=== PATIENT | female | born 1930 | race Caucasian/White ===

== ENCOUNTER 2017-01-16 12:02 | Emergency (ER) | payer MEDICARE, MEDICAID ==
[~2017-01-16] VITALS: Ht 154.9 cm; Wt 62.6 kg
[~2017-01-16 12:02] MED LIST: ASP81CT PO; ATEN-158 PO; CLOP75TA PO; MULT-963 PO; SIMV20TA PO; VIT1TABL93 PO
[2017-01-16 12:25] LABS: BASOPHILS % (AUTO) 0 % (0-10); EOSINOPHILS # (AUTO) 0.2 10^3/uL (0.0-0.3); EOSINOPHILS % (AUTO) 2 % (0-10); LYMPHOCYTES # (AUTO) 2.8 X 10^3 (1.0-4.0); LYMPHOCYTES % (AUTO) 37 % (12-44); MEAN CORPUSCULAR HEMOGLOBIN 31 PG (25-34); MEAN CORPUSCULAR HGB CONC 33 G/DL (32-36); MEAN CORPUSCULAR VOLUME 94 FL (80-99); MEAN PLATELET VOLUME 9.5 FL (7.4-10.4); MONOCYTES # (AUTO) 0.7 X 10^3 (0.0-1.0); MONOCYTES % (AUTO) 10 % (0-12); NEUTROPHILS # (AUTO) 3.8 X 10^3 (1.8-7.8); NEUTROPHILS % (AUTO) 51 % (42-75); PLATELET COUNT 156 10^3/uL (130-400); RED BLOOD COUNT 4.71 10^6/uL (4.35-5.85); RED CELL DISTRIBUTION WIDTH 13.1 % (10.0-14.5); WHITE BLOOD COUNT 7.4 10^3/uL (4.3-11.0)
--- NOTE | 2017-01-16 12:27 | ED EENT ---
History of Present Illness General Chief Complaint: Eye Problems Stated Complaint: BLURRED VISION Nursing Triage Note: PT CO BILAT EYE BLURRED VISION WHILE SHE WAS READING A MAGAZINE. SHE ALSO C/O POUNDING IN HER EARS, AND STATES HER BP HAS BEEN HIGH. Source: patient Exam Limitations: no limitations History of Present Illness Time seen by provider: 12:24 Initial Comments To ER with reports of blurred vision. She arrives per EMS from home where she lives alone. Blurred vision occurred this morning while she was sitting in her chair reading a magazine. This came on suddenly and was not associated with eye redness itching or pain. She called ambulance and while she was on the phone with 911 and the blurred vision which affected both eyes resolved. In total, the blurred vision persisted for about 5-10 minutes before resolving on its own. She states that during the time that her vision was blurred she had a "whooshing" sensation in her head. She denies any difficulty with word finding , speech or unilateral weakness. She states her vision remains back to normal at this time. She also states that she's been having lower abdominal cramping for about the past week and high blood pressure which is unusual for her. Timing/Duration: this morning Severity: moderate Associated Symptoms: denies symptoms Allergies and Home Medications Allergies Uncoded Allergies: SULFA (Allergy, Unknown, 12/31/14) Home Medications Aspirin 81 Mg Chew, 81 MG PO, (Reported) Atenolol 50 Mg Tab, 50 MG PO, (Reported) Clopidogrel Bisulfate 75 Mg Tablet, 1 EACH PO DAILY, (Reported) Multivitamin 1 Each Tablet, 1 EACH PO DAILY, (Reported) Simvastatin 20 Mg Tablet, 20 MG PO DAILY, (Reported) Vit D3/Folic Acid/B2/B6/B12 1 Each Tablet, 1 EACH PO DAILY, (Reported) Review of Systems Constitutional: see HPI Eyes: See HPI, Blurred Vision Ears: No Symptoms Reported Nose: no symptoms reported Mouth: no symptoms reported Throat: no symptoms reported Respiratory: no symptoms reported Cardiovascular: no symptoms reported Musculoskeletal: no symptoms reported Skin: no symptoms reported Neurological: No Symptoms Reported Hematologic/Lymphatic: No Symptoms Reported Past Wnjlwkz-Dcfikc-Xvopim Hx Patient Social History Alcohol Use: Denies Use Recreational Drug Use: No Smoking Status: Never a Smoker 2nd Hand Smoke Exposure: No Recent Foreign Travel: No Contact w/Someone Who Travel: No Recent Infectious Disease Expo: No Immunizations Up To Date Tetanus Booster (TDap): Less than 5yrs Seasonal Allergies Seasonal Allergies: No Surgeries HX Surgeries: Yes (L SIDED CAROTID) Respiratory Hx Respiratory Disorders: No Cardiovascular Hx Cardiac Disorders: Yes Cardiac Disorders: High Cholesterol, Hypertension Neurological Hx Neurological Disorders: No Reproductive System Hx Reproductive Disorders: No Sexually Transmitted Disease: No Genitourinary Hx Genitourinary Disorders: No Gastrointestinal Hx Gastrointestinal Disorders: No Musculoskeletal Hx Musculoskeletal Disorders: No Endocrine Hx Endocrine Disorders: No HEENT HX ENT Disorders: No Cancer Hx Cancer: No Psychosocial Hx Psychiatric Problems: No Integumentary HX Skin/Integumentary Disorder: No Blood Transfusions Hx Blood Disorders: No Adverse Reaction to a Blood Tr: No Family Medical History Significant Family History: No Pertinent Family Hx Physical Exam Vital Signs Vital Sign - Last 12Hours 01/16/17 12:16 Temp 98.7 Pulse 69 Resp 20 B/P (MAP) 178/105 Pulse Ox 97 O2 Delivery Room Air General Appearance: WD/WN, no apparent distress Eyes: bilateral eye normal inspection, bilateral eye PERRL, bilateral eye EOMI Ears: bilateral ear auricle normal, bilateral ear canal normal, bilateral ear TM normal Mouth/Throat: normal mouth inspection, pharynx normal Neck: non-tender, full range of motion Respiratory: normal breath sounds, no respiratory distress, no accessory muscle use Gastrointestinal: normal bowel sounds, non tender, soft Neurologic/Psychiatric: alert, normal mood/affect, oriented x 3 Skin: normal color, warm/dry Her NIH stroke scale on presentation to ER is 0. Progress/Results/Core Measures Results/Orders Lab Results Laboratory Tests Test 01/16/17 12:09 01/16/17 14:24 Range/Units White Blood Count 7.4 4.3-11.0 10^3/uL Red Blood Count 4.71 4.35-5.85 10^6/uL Hemoglobin 14.5 11.5-16.0 G/DL Hematocrit 44 35-52 % Mean Corpuscular Volume 94 80-99 FL Mean Corpuscular Hemoglobin 31 25-34 PG Mean Corpuscular Hemoglobin Concent 33 32-36 G/DL Red Cell Distribution Width 13.1 10.0-14.5 % Platelet Count 156 130-400 10^3/uL Mean Platelet Volume 9.5 7.4-10.4 FL Neutrophils (%) (Auto) 51 42-75 % Lymphocytes (%) (Auto) 37 12-44 % Monocytes (%) (Auto) 10 0-12 % Eosinophils (%) (Auto) 2 0-10 % Basophils (%) (Auto) 0 0-10 % Neutrophils # (Auto) 3.8 1.8-7.8 X 10^3 Lymphocytes # (Auto) 2.8 1.0-4.0 X 10^3 Monocytes # (Auto) 0.7 0.0-1.0 X 10^3 Eosinophils # (Auto) 0.2 0.0-0.3 10^3/uL Basophils # (Auto) 0.0 0.0-0.1 10^3/uL Sodium Level 140 135-145 MMOL/L Potassium Level 4.2 3.6-5.0 MMOL/L Chloride Level 106 98-107 MMOL/L Carbon Dioxide Level 26 21-32 MMOL/L Anion Gap 8 5-14 MMOL/L Blood Urea Nitrogen 14 7-18 MG/DL Creatinine 0.61 0.60-1.30 MG/DL Estimat Glomerular Filtration Rate > 60 BUN/Creatinine Ratio 23 Glucose Level 93 70-105 MG/DL Calcium Level 9.8 8.5-10.1 MG/DL Total Bilirubin 0.7 0.1-1.0 MG/DL Aspartate Amino Transf (AST/SGOT) 19 5-34 U/L Alanine Aminotransferase (ALT/SGPT) 14 0-55 U/L Alkaline Phosphatase 53 40-136 U/L Total Protein 6.5 6.4-8.2 GM/DL Albumin 3.8 3.2-4.5 GM/DL Urine Color YELLOW Urine Clarity CLEAR Urine pH 7 5-9 Urine Specific [place] 1.010 L 1.016-1.022 Urine Protein NEGATIVE NEGATIVE Urine Glucose (UA) NEGATIVE NEGATIVE Urine Ketones NEGATIVE NEGATIVE Urine Nitrite NEGATIVE NEGATIVE Urine Bilirubin NEGATIVE NEGATIVE Urine Urobilinogen NORMAL NORMAL MG/DL Urine Leukocyte Esterase 1+ H NEGATIVE Urine RBC (Auto) NEGATIVE NEGATIVE Urine RBC NONE /HPF Urine WBC RARE /HPF Urine Squamous Epithelial Cells RARE /HPF Urine Crystals NONE /LPF Urine Bacteria NEGATIVE /HPF Urine Casts NONE /LPF Urine Mucus NEGATIVE /LPF Urine Culture Indicated NO My Orders Orders - ERICK RODRIGUEZ RIDE ATTENDANT Cbc With Automated Diff (01/16/17 12:17) Comprehensive Metabolic Panel (01/16/17 12:17) Ua Culture If Indicated (01/16/17 12:17) Ct Head Wo (01/16/17 12:17) Chest 1 View, Ap/Pa Only (01/16/17 12:17) Saline Lock/Iv-Start (01/16/17 12:17) Ct Abdomen/Pelvis W (01/16/17 12:48) Iohexol Injection (Omnipaque 350 Mg/Ml 1 (01/16/17 13:00) Sodium Chloride Flush (Catheter Flush Sy (01/16/17 13:00) Ns (Ivpb) (Sodium Chloride 0.9% Ivpb Bag (01/16/17 13:00) Medications Given in ED Current Medications Medications Dose Ordered Sig/Hilda Route Start Time Stop Time Status Last Admin Dose Admin Iohexol 100 ml ONCE ONCE IV 01/16/17 13:00 01/16/17 13:27 DC 01/16/17 13:09 100 ML Sodium Chloride 10 ml NEEDED PRN IV 01/16/17 13:00 01/16/17 13:10 10 ML Sodium Chloride 100 ml ONCE ONCE IV 01/16/17 13:00 01/16/17 13:27 DC 01/16/17 13:10 80 ML Vital Signs/I&O Vital Sign - Last 12Hours 01/16/17 12:16 Temp 98.7 Pulse 69 Resp 20 B/P (MAP) 178/105 Pulse Ox 97 O2 Delivery Room Air Blood Pressure Mean: 129 Departure Communication Progress Notes Blood pressure on arrival here was 178/107. Heart rate 69. At this time, 1500 , she is down to 140/67 with no treatment. Impression Impression: Primary Impression: Constipation Additional Impressions: transient blurred vision Labile hypertension Disposition: 01 HOME, SELF-CARE Condition: Stable Departure-Patient Inst. Decision time for Depature: 14:57 Referrals: CHIQUITA HINTON DO (PCP/Family) Primary Care Physician Patient Instructions: Malignant Hypertension Add. Discharge Instructions: 1. Follow-up with Dr. Hinton 2. Return to ER for any concerns 3. All discharge instructions reviewed with patient and/or family. Voiced understanding. ERICK RODRIGUEZ RIDE ATTENDANT Jan 16, 2017 12:27
[2017-01-16 12:37] LABS: ALANINE AMINOTRANSFERASE 14 U/L (0-55); ALBUMIN 3.8 GM/DL (3.2-4.5); ANION GAP 8 MMOL/L (5-14); ASPARTATE AMINO TRANSFERASE 19 U/L (5-34); BILIRUBIN,TOTAL 0.7 MG/DL (0.1-1.0); BLOOD UREA NITROGEN 14 MG/DL (7-18); BUN/CREATININE RATIO 23; CALCIUM 9.8 MG/DL (8.5-10.1); CARBON DIOXIDE 26 MMOL/L (21-32); CHLORIDE 106 MMOL/L (98-107); CREATININE SERUM 0.61 MG/DL (0.60-1.30); GFR ESTIMATED > 60; GLUCOSE 93 MG/DL (70-105); POTASSIUM 4.2 MMOL/L (3.6-5.0); SODIUM 140 MMOL/L (135-145); TOTAL PROTEIN 6.5 GM/DL (6.4-8.2)
--- NOTE | 2017-01-16 12:54 | Diagnostic Imaging Report ---
INDICATION: Hypertension with visual disturbance. Portable upright view of the chest is obtained with comparison made to study of 12/06/2014. There is mild generalized cardiomegaly. Pulmonary vascularity is at the upper limits of normal. There is blunting of the left costophrenic sulcus. No consolidation is identified. Air bronchograms are not appreciated. IMPRESSION: Mild cardiomegaly with pulmonary vascularity at the upper limits of normal. This could be related to cardiac decompensation without overt edema. There may be mild left pleural fluid versus pleural thickening. Dictated by: Dictated on workstation # [id number]
[2017-01-16] MEDS ORDERED: NS 100 ML (IVPB) BAG IV ONE (13:00)
[2017-01-16] MEDS ORDERED: IOHEXOL 350 MG/ML 100 ML (OMNIPAQUE 350) VIAL IV ONE (13:00)
[2017-01-16] MEDS ORDERED: CATHETER FLUSH 10 ML SYR IV PRN (13:00)
--- NOTE | 2017-01-16 13:09 | Diagnostic Imaging Report ---
CLINICAL INDICATION: Patient with high blood pressure, vision went blank for few seconds. EXAM: Axial CT scan of brain performed without IV contrast. COMPARISON: None. FINDINGS: There is no evidence of acute cerebral infarct, intracranial hemorrhage, or gross mass effect. There is a small area of chronic cerebral infarct involving the anterior right external capsule region. There is focal areas of low-attenuation white matter changes, likely related to chronic small vessel ischemic disease. There is prominent perivascular space versus chronic cerebral infarct involving the left basal ganglia/external capsule region. Otherwise, there is normal monge-white matter distinction. The brain parenchymal volume appears appropriate for patient's age. There is no significant midline shift or herniation. There is no evidence of hydrocephalus. The basal cisterns are unremarkable. The skull, extracranial soft tissue, and orbits are unremarkable. The paranasal sinuses are unremarkable. IMPRESSION: 1: There is no CT evidence of acute cerebral infarct, intracranial hemorrhage, hydrocephalus, or brain herniation. 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 3: There is a small area of prominent perivascular space versus chronic cerebral infarct involving the left basal ganglia/external capsule region. 4: Brain parenchymal chronic small vessel ischemic disease. Dictated by: Dictated on workstation # [id number]
[2017-01-16 14:30] LABS: BILIRUBIN,URINE NEGATIVE (NEGATIVE); KETONES,URINE NEGATIVE (NEGATIVE); LEUKOCYTE ESTERASE ,URINE 1+ (NEGATIVE); NITRITE,URINE NEGATIVE (NEGATIVE); PH,URINE 7 (5-9); PROTEIN,URINE NEGATIVE (NEGATIVE); UROBILINOGEN,URINE NORMAL (NORMAL)
--- NOTE | 2017-01-16 14:36 | Diagnostic Imaging Report ---
PROCEDURE: CT abdomen and pelvis with contrast. TECHNIQUE: Multiple contiguous axial images were obtained through the abdomen and pelvis after administration of intravenous contrast. INDICATION: Abdominal pain. The previous CT abdomen/pelvis exam of 02/07/2007, failed to show any sign of an acute abnormality On this study the liver is homogeneous and not enlarged. The spleen, pancreas, adrenals, kidneys, aorta, and inferior vena cava show no sign of an acute abnormality. There is a small cyst in the lateral aspect of the superior pole of the right kidney. This seems unchanged when compared to the prior study. As noted on the prior exam the gallbladder is surgically absent. The stomach is not well distended and consequently difficult to assess. There is a 2.1 x 3.7-cm hiatal hernia on this exam. This is slightly larger than on the prior study. The appendix was visualized and is not abnormally thickened. There are numerous diverticula involving the sigmoid and descending colon, but there is no evidence for acute diverticulitis. The urinary bladder is grossly unremarkable. The uterus is surgically absent. There is no pelvic mass or free fluid collection noted. The bone windows show no sign of a fracture or of a destructive lesion. The lung bases are clear. IMPRESSION: 1. There is no acute abnormality of the abdomen or pelvis. 2. The gallbladder and uterus are surgically absent. 3. There are numerous diverticula involving the sigmoid colon, but there is no evidence for acute diverticulitis. 4. The hiatal hernia noted previously is slightly larger. 5. These results were discussed with Larry Ramirez APRN, in the ER. Dictated by: Dictated on workstation # [id number]
[2017-01-16 14:41] LABS: SQUAMOUS EPITHELIAL CELL,UR RARE /HPF; WBC,URINE RARE /HPF
[2017-01-16 15:20] VITALS: BP 163/77
== END 2017-01-16 15:20 | disposition home or self-care (01) ==
LOC: EDUNIT# 12:02 → ER 12:05
DX: H53.8 Other visual disturbances (principal); K59.00 Constipation, unspecified; I10 Essential (primary) hypertension; E78.00 Pure hypercholesterolemia, unspecified; Z79.82 Long term (current) use of aspirin
CPT/HCPCS: 36415; 70450; 71010; 74177; 80053; 81000; 85025

== ENCOUNTER 2017-02-27 14:00 | Outpatient (RCR) | payer MEDICARE, MEDICAID | END 2017-03-02 | disposition home or self-care (01) | PROVIDERS: ATTEND Family Medicine | DX: M54.41 Lumbago with sciatica, right side (principal); R53.1 Weakness ==

== ENCOUNTER 2017-04-10 13:53 | Outpatient (RCR) | payer MEDICARE, MEDICAID | END 2017-04-10 14:33 | disposition home or self-care (01) | PROVIDERS: ATTEND Family Medicine | DX: M54.41 Lumbago with sciatica, right side (principal); R53.1 Weakness ==

== ENCOUNTER → 2017-09-12 | Outpatient (CLI) | payer MEDICARE, MEDICAID ==
--- NOTE | 2017-09-12 18:06 | Diagnostic Imaging Report ---
INDICATION: Routine screening. Comparison is made with prior exam from 02/23/2016 and 07/14/2014. The current study was also evaluated with a Computer Aided Detection (CAD) system. FINDINGS: Both breasts do show moderate parenchymal heterogeneity and increased density, limiting the sensitivity of mammography. Benign-appearing parenchymal and vascular calcifications are noted bilaterally. No mass or malignant-appearing microcalcifications are seen. The axillae are unremarkable. IMPRESSION: No mammographic features suspicious for malignancy are identified. ACR BI-RADS Category 2: Benign findings. Result letter will be mailed to the patient. Note: At least 10% of breast cancer is not imaged by mammography. Dictated by: Dictated on workstation # [id number]
== END ==
LOC: RAD 14:26
PROVIDERS: ATTEND Family Medicine
DX: Z12.31 Encounter for screening mammogram for malignant neoplasm of breast (principal)
CPT/HCPCS: 77067

== ENCOUNTER 2017-11-08 05:30 | Outpatient (CLI) | payer MEDICARE, MEDICAID ==
[~2017-11-08] VITALS: Ht 154.9 cm; Wt 62.6 kg
[~2017-11-08 05:30] MED LIST changes: +ASPI-999 PO; +ATEN50TA PO; +MULT-324 PO; +SIMV20TA3 PO
== END 2017-11-08 13:12 ==
LOC: PREOP 05:30
PROVIDERS: ATTEND Surgery
DX: Z01.818 Encounter for other preprocedural examination (principal); Z12.11 Encounter for screening for malignant neoplasm of colon; Z86.010 Personal history of colon polyps

== ENCOUNTER 2017-11-12 08:13 | Day surgery (SDC) | payer MEDICARE, MEDICAID ==
[~2017-11-12] VITALS: Ht 154.9 cm; Wt 62.6 kg
[2017-11-12] MEDS ORDERED: LACTATED RINGERS 1,000 ML IV ONE (08:27)
[2017-11-12 08:30] VITALS: BP 140/63
[2017-11-12] MEDS ORDERED: NS IV 1000 ML 1,000 ML IV SCH (09:00)
--- NOTE | 2017-11-12 09:01 | Progress Note-Pre Operative ---
Pre-Operative Progress Note H&P Reviewed The H&P was reviewed, patient examined and no changes noted. Date Seen by Provider: Nov 12, 2017 Time Seen by Provider: 09:00 Date H&P Reviewed: Nov 12, 2017 Time H&P Reviewed: 09:00 Pre-Operative Diagnosis: history of polyps ROSA BARRON DO Nov 12, 2017 09:01
[2017-11-12] MEDS ORDERED: LACTATED RINGERS 1,000 ML IV SCH (09:15)
[2017-11-12] MEDS ORDERED: MIDAZOLAM 2 MG/2 ML (VERSED) VIAL ONE (09:21)
[2017-11-12] MEDS ORDERED: PROPOFOL INJECTION 50 ML IV ONE (09:21)
--- NOTE | 2017-11-12 10:30 | Progress Note-Post Operative ---
Post-Operative Progess Note Surgeon (s)/Railroad Brake Repairer (s) Surgeon ROSA BARRON DO Railroad Brake Repairer: na Pre-Operative Diagnosis history of polyps Post-Operative Diagnosis diverticulosis Procedure & Operative Findings Date of Procedure 11/12/17 Procedure Performed/Findings colonoscopy Anesthesia Type per [facility] Estimated Blood Loss Estimated blood loss (mL): none Specimens/Packing Specimens Removed none ROSA BARRON DO Nov 12, 2017 10:30
--- NOTE | 2017-11-12 10:31 | Discharge Inst-Simple/Standard ---
Discharge Inst-Standard Patient Instructions/Follow Up Plan of Care/Instructions/FU: follow up on as needed basis. Activity as Tolerated: Yes Discharge Diet: Regular Diet (high fiber) ROSA BARRON DO Nov 12, 2017 10:31
[2017-11-12 10:50] VITALS: BP 120/56
--- NOTE | 2017-11-12 10:56 | Anesthesia-General Post-Op ---
MAC Patient Condition Mental Status/LOC: Same as Preop Cardiovascular: Satisfactory Nausea/Vomiting: Absent Respiratory: Satisfactory Pain: Controlled Complications: Absent Post Op Complications Complications None Follow Up Care/Instructions Patient Instructions None needed. Anesthesiology Discharge Order Discharge Order Patient is doing well, no complaints, stable vital signs, no apparent adverse anesthesia problems. No complications reported per nursing. NAKIAT RUVALCABA CRNA Nov 12, 2017 10:56
[2017-11-12 11:06] VITALS: BP 127/69
[2017-11-12 11:21] VITALS: BP 127/69
--- NOTE | 2017-11-12 15:54 | OPERATIVE REPORT ---
DATE OF SERVICE: 11/12/2017 PREOPERATIVE DIAGNOSIS: History of polyps. POSTOPERATIVE DIAGNOSIS: Diverticulosis. PROCEDURE: Colonoscopy. SURGEON: Rosa Quintero DO ANESTHESIA: Per MDA. ESTIMATED BLOOD LOSS: None. COMPLICATIONS: None. INDICATIONS: The patient is an 87-year-old female with history of colon polyps. She understands risks and benefits of procedure and wishes to proceed with procedure. Consent was signed in the chart. DESCRIPTION OF PROCEDURE: The patient was taken to the endoscopy suite, placed in left lateral recumbent position. Timeout was performed. A digital rectal exam was performed just noting some hemorrhoidal disease. Scope was inserted in the rectum and advanced all the way to the cecum with minimal difficulty. Prep was adequate. Scope was then slowly retracted back. There were no polyps, mass or ulcerations within the cecum, ascending, transverse, descending colon. In the sigmoid colon, moderate amount of diverticulosis was present. There are no polyps, mass or ulcerations. The scope was slowly retracted back to the rectum, where it was also retroflexed noting hemorrhoidal disease. No polyps, mass or ulcerations. The scope was returned to its normal position, slowly withdrawn until completely removed. The patient tolerated procedure well without any complications. She was taken to recovery room in stable condition. RECOMMENDATIONS: The patient will need repeat colonoscopy only if she has symptoms. She should be on a high fiber diet. If she has any issues, she should be reevaluated at that time. Job ID: [id number] DocumentID: [id number] Dictated Date: 11/12/2017 10:33:51 Speeder Machine Operator Date: 11/12/2017 15:53:07 Dictated By: ROSA QUINTERO DO
== END 2017-11-12 11:20 | disposition home or self-care (01) ==
LOC: ENDO 08:13
PROVIDERS: ATTEND Surgery
DX: Z12.11 Encounter for screening for malignant neoplasm of colon (principal); Z86.010 Personal history of colon polyps; K57.30 Diverticulosis of large intestine without perforation or abscess without bleeding; I25.10 Atherosclerotic heart disease of native coronary artery without angina pectoris; I10 Essential (primary) hypertension; Z95.1 Presence of aortocoronary bypass graft; Z87.891 Personal history of nicotine dependence; Z79.82 Long term (current) use of aspirin; Z79.899 Other long term (current) drug therapy

== ENCOUNTER 2018-02-01 16:02 | Emergency (ER) | payer MEDICAID, MEDICARE ==
[~2018-02-01] VITALS: Ht 154.9 cm; Wt 62.6 kg
--- OUTSIDE RECORDS SUMMARY | 2018-02-01 16:08 | XMS REPORT ---
Author SRINIVAS Nielsen Organization [employer] Address Unknown Phone Unavailable Care Team Providers Care Flight Line Service Attendant Name Role Phone SRINIVAS BAER CP Unavailable Allergies, Adverse Reactions, Alerts Substance Reaction Event Type N.K.D.A. Info Not Available Non Drug Allergy Problems Problem Type Condition Code Onset Dates Condition Status Assessment Encounter for dental examination Z01.20 Active Problem Need for prophylactic vaccination and inoculation, Influenza V04.81 Active Medications Medication Code System Code Instructions Start Date End Date Status Dosage Fosamax [facility] [id number] not defined Plavix [facility] [id number] not defined zocor [facility] 0 not defined Atenolol [facility] [id number] not defined Procedures Procedure Coding System Code Date PROPHYLAXIS - ADULT CPT-4 D1110 Mar 09, 2015 ORAL EVALUATION, PT < 3YRS CPT-4 D0145 Mar 09, 2015 INTRAORL-PERIAPICAL 1 FILM [id number] CPT-4 D0220 Mar 09, 2015 TOPICAL FLUORIDE VARNISH CPT-4 D1206 Mar 09, 2015 Vital Signs Date/Time: Mar 09, 2015 Blood Pressure Diastolic 68 mmHg Blood Pressure Systolic 128 mmHg Results No Known Results Summary Purpose [employer] Submission
--- OUTSIDE RECORDS SUMMARY | 2018-02-01 16:09 | XMS REPORT | Continuity of Care Document ---
Author Author [facility] Address Unknown Phone Unavailable Allergies Active Description Code Type Severity Reaction Onset Reported/Identified Relationship to Patient Clinical Status Yes SULFA SULFA Unknown N/A 12/31/2014 Medications There is no data. Problems Date Dx Coded Attending Type Code Diagnosis Diagnosed By 05/02/1432 LORENA MIKE MD Ot M54.41 LUMBAGO WITH SCIATICA, RIGHT SIDE 05/02/1432 LORENA MIKE MD Ot R53.1 WEAKNESS 03/09/2013 JAZZMINE MONTEMAYOR DO V04.81 FLU SHOT 03/09/2013 ARI GUILLORY DDS V04.81 FLU SHOT 07/14/2014 Ot 272.4 07/14/2014 Ot 401.9 07/14/2014 Ot 414.01 07/14/2014 Ot V58.69 07/14/2014 Ot 733.00 07/14/2014 Ot 272.4 07/14/2014 Ot 401.9 07/14/2014 Ot 414.01 07/14/2014 Ot V58.69 07/14/2014 Ot 272.4 07/14/2014 Ot 401.9 07/14/2014 Ot 414.01 07/14/2014 Ot V58.69 07/14/2014 Ot 414.00 07/14/2014 Ot V45.81 07/14/2014 Ot 611.72 07/14/2014 Ot V15.89 07/14/2014 Ot V67.09 07/14/2014 Ot 272.4 07/14/2014 Ot 401.9 07/14/2014 Ot 414.01 07/14/2014 Ot V58.69 07/14/2014 Ot 611.72 07/14/2014 Ot V15.89 07/14/2014 Ot V67.09 07/14/2014 Ot 272.4 07/14/2014 Ot 401.9 07/14/2014 Ot 272.4 07/14/2014 Ot 414.00 07/14/2014 Ot V58.69 07/14/2014 Ot V76.12 07/14/2014 Ot 611.71 07/14/2014 CHIQUITA MUNIZ DO Ot 722.52 07/14/2014 CHIQUITA MUNIZ DO Ot 733.00 07/14/2014 CHIQUITA MUNIZ DO Ot V76.12 07/14/2014 CHIQUITA MUNIZ DO Ot 338.29 07/14/2014 CHIQUITA MUNIZ DO Ot 715.35 07/14/2014 CHIQUITA MUNIZ DO Ot 733.90 12/19/2014 SHRUTI HANDY MD Ot 784.2 SWELLING IN HEAD NECK 12/19/2014 SHRUTI HANDY MD Ot 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 12/29/2014 EDYTA DASH, HILLARY Ot 433.10 12/29/2014 HILLARY LAN MD Ot V72.63 12/29/2014 HILLARY LAN MD Ot V72.83 12/31/2014 Ot 733.00 12/31/2014 Ot 272.4 12/31/2014 Ot 401.9 12/31/2014 Ot 414.01 12/31/2014 Ot V58.69 12/31/2014 Ot 272.4 12/31/2014 Ot 401.9 12/31/2014 Ot 414.01 12/31/2014 Ot V58.69 12/31/2014 Ot 414.00 12/31/2014 Ot V45.81 12/31/2014 Ot 611.72 12/31/2014 Ot V15.89 12/31/2014 Ot V67.09 12/31/2014 Ot 272.4 12/31/2014 Ot 401.9 12/31/2014 Ot 414.01 12/31/2014 Ot V58.69 12/31/2014 Ot 611.72 12/31/2014 Ot V15.89 12/31/2014 Ot V67.09 12/31/2014 Ot 272.4 12/31/2014 Ot 401.9 12/31/2014 Ot 272.4 12/31/2014 Ot 414.00 12/31/2014 Ot V58.69 12/31/2014 Ot V76.12 12/31/2014 Ot 611.71 12/31/2014 CHIQUITA MUNIZ DO Ot 722.52 12/31/2014 CHIQUITA MUNIZ DO Ot 733.00 12/31/2014 CHIQUITA MUNIZ DO Ot V76.12 12/31/2014 CHIQUITA MUNIZ DO Ot 338.29 12/31/2014 CHIQUITA MUNIZ DO Ot 715.35 12/31/2014 CHIQUITA MUNIZ DO Ot 733.90 12/31/2014 CHIQUITA MUNIZ DO Ot V76.12 12/31/2014 EDYTA DASH, HILLARY Ot 433.10 12/31/2014 EDYTA DASH, HILLARY Ot V72.63 12/31/2014 EDYTA DASH, HILLARY Ot V72.83 12/31/2014 MARY TEJEDA Ot 782.7 SPONTANEOUS ECCHYMOSES 12/31/2014 MARY TEJEDA Ot V58.63 LONG-TERM(CURRENT)USE OF ANTIPLATELET/AN 01/14/2015 EDYTA DASH, HILLARY Ot 433.10 01/14/2015 EDYTA DASH, HILLARY Ot V72.63 01/14/2015 HILLARY LAN MD Ot V72.83 07/11/2015 Ot I65.23 07/25/2015 Ot I65.23 11/23/2015 AGUS DASH FACC, TALIB FACP CCDS Ot R42 DIZZINESS AND GIDDINESS 11/23/2015 AGUS ADSH FACC, TALIB FACP CCDS Ot R42 DIZZINESS AND GIDDINESS 11/23/2015 AGUS DASH FACC, TALIB FACP CCDS Ot R42 DIZZINESS AND GIDDINESS 11/24/2015 AGUS DASH FACC, TALIB FACP CCDS Ot E78.4 OTHER HYPERLIPIDEMIA 11/24/2015 AGUS DASH FACC, TALIB FACP CCDS Ot I10 ESSENTIAL (PRIMARY) HYPERTENSION 11/24/2015 AGUS DASH FACC, ALI FACP CCDS Ot I25.10 ATHSCL HEART DISEASE OF [place] CORONARY 11/24/2015 AGUS DASH FACC, TALIB FACP CCDS Ot 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 11/24/2015 AGUS DASH FACC, TALIB FACP CCDS Ot R42 DIZZINESS AND GIDDINESS 12/20/2015 AGUS DASH FACC, TALIB WALDENP CCDS Ot E78.4 OTHER HYPERLIPIDEMIA 12/20/2015 AGUS DASH FACC, ALI FACP CCDS Ot I10 ESSENTIAL (PRIMARY) HYPERTENSION 12/20/2015 AGUS DASH [facility], ALI FACP CCDS Ot I25.10 ATHSCL HEART DISEASE OF [place] CORONARY 12/20/2015 AGUS DASH FACC, ALI FACP CCDS Ot 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 12/20/2015 [facility], [facility]I FACP CCDS Ot R42 DIZZINESS AND GIDDINESS 12/26/2015 [facility], ALI FACP CCDS Ot E78.4 OTHER HYPERLIPIDEMIA 12/26/2015 AGUS DASH [facility], ALI FACP CCDS Ot I10 ESSENTIAL (PRIMARY) HYPERTENSION 12/26/2015 AGUS DASH [facility], ALI FACP CCDS Ot I25.10 ATHSCL HEART DISEASE OF [place] CORONARY 12/26/2015 [facility], ALI FACP CCDS Ot 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 12/26/2015 AGUS DASH [facility], ALI FACP CCDS Ot R42 DIZZINESS AND GIDDINESS 02/23/2016 Ot 611.72 LUMP OR MASS IN BREAST 02/23/2016 Ot V15.89 HX-HEALTH HAZARDS NEC 02/23/2016 Ot V67.09 SURGERY FOLLOW-UP, OTHER SURGERY 02/23/2016 Ot 272.4 HYPERLIPIDEMIA NEC/NOS 02/23/2016 Ot 401.9 HYPERTENSION NOS 02/23/2016 Ot 272.4 HYPERLIPIDEMIA NEC/NOS 02/23/2016 Ot 414.00 CORON ATHEROSCLER NOS TYPE VESSEL, NATIV 02/23/2016 Ot V58.69 OTH MED,LT, CURRENT USE 02/23/2016 Ot V76.12 OTH SCREEN MAMMO-MALIGN NEOPLASM OF LAURE 02/23/2016 Ot 611.71 MASTODYNIA 02/23/2016 CHIQUITA MUNIZ DO Ot 722.52 LUMB/LUMBOSAC DISC DEGEN 02/23/2016 CHIQUITA MUNIZ DO Ot 733.00 OSTEOPOROSIS NOS 02/23/2016 CHIQUITA MUNIZ DO Ot V76.12 OTH SCREEN MAMMO-MALIGN NEOPLASM OF LAURE 02/23/2016 CHIQUITA MUNIZ DO Ot 338.29 OTHER CHRONIC PAIN 02/23/2016 CHIQUITA MUNIZ DO Ot 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 02/23/2016 CHIQUITA MUNIZ DO Ot 733.90 BONE CARTILAGE DIS NOS 02/23/2016 CHIQUITA MUNIZ DO, Ot V76.12 OT SCREEN MAMMO-MALIGN NEOPLASM OF LAURE 02/23/2016 HILLARY LAN MD Ot 433.10 CAROTID ARTERY OCCLUSION W O CEREBRAL IN 02/23/2016 HILLARY LAN MD Ot V72.63 PRE-PROCEDURAL LABORATORY EXAMINATION 02/23/2016 HILLARY LAN MD Ot V72.83 EXAM PRE-OPERATIVE NEC 02/23/2016 Ot 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 02/23/2016 AGUS DASH FAC, ALI FACP CCDS Ot E78.4 OTHER HYPERLIPIDEMIA 02/23/2016 AGUS DASH FACC, ALI FACP CCDS Ot I10 ESSENTIAL (PRIMARY) HYPERTENSION 02/23/2016 AGUS DASH FAC, ALI FACP CCDS Ot I25.10 ATHSCL HEART DISEASE OF [place] CORONARY 02/23/2016 AGUS DASH FAC, ALI FACP CCDS Ot 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 02/23/2016 AGUS DASH FAC, ALI FACP CCDS Ot R42 DIZZINESS AND GIDDINESS 02/23/2016 CHIQUITA MUNIZ DO Ot M81.0 AGE-RELATED OSTEOPOROSIS W/O CURRENT PAT 02/23/2016 CHIQUITA MUNIZ DO Ot Z12.31 ENCNTR SCREEN MAMMOGRAM FOR MALIGNANT NE 02/23/2016 CHIQUITA MUNIZ DO Ot M81.0 AGE-RELATED OSTEOPOROSIS W/O CURRENT PAT 02/23/2016 CHIQUITA MUNIZ DO Ot Z12.31 ENCNTR SCREEN MAMMOGRAM FOR MALIGNANT NE 02/23/2016 CHIQUITA MUNIZ DO Ot M81.0 AGE-RELATED OSTEOPOROSIS W/O CURRENT PAT 02/23/2016 CHIQUITA MUNIZ DO Ot Z12.31 ENCNTR SCREEN MAMMOGRAM FOR MALIGNANT NE 02/24/2016 CHIQUITA MUNIZ DO Ot M81.0 AGE-RELATED OSTEOPOROSIS W/O CURRENT PAT 02/24/2016 CHIQUITA MUNIZ DO Ot Z12.31 ENCNTR SCREEN MAMMOGRAM FOR MALIGNANT NE 02/24/2016 CHIQUITA MUNIZ DO Ot M81.0 AGE-RELATED OSTEOPOROSIS W/O CURRENT PAT 02/24/2016 CHIQUITA MUNIZ DO Ot Z12.31 ENCNTR SCREEN MAMMOGRAM FOR MALIGNANT NE 03/05/2016 FLAVIO MAN, CHIQUITA Colon Ot M81.0 AGE-RELATED OSTEOPOROSIS W/O CURRENT PAT 03/05/2016 FLAVIO MAN, CHIQUITA Colon Ot Z12.31 ENCNTR SCREEN MAMMOGRAM FOR MALIGNANT NE 05/18/2016 FLAVIO MAN, CHIQUITA Colon Ot M81.0 AGE-RELATED OSTEOPOROSIS W/O CURRENT PAT 05/18/2016 FLAVIO MAN CHIQUITA Colon Ot Z12.31 ENCNTR SCREEN MAMMOGRAM FOR MALIGNANT NE 01/16/2017 ERICK RODRIGUEZ LINEN AIDE Ot E78.00 PURE HYPERCHOLESTEROLEMIA, UNSPECIFIED 01/16/2017 ERICK RODRIGUEZ LINEN AIDE Ot H53.8 OTHER VISUAL DISTURBANCES 01/16/2017 ERICK RODRIGUEZ LINEN AIDE Ot I10 ESSENTIAL (PRIMARY) HYPERTENSION 01/16/2017 ERICK RODRIGUEZ LINEN AIDE Ot K59.00 CONSTIPATION, UNSPECIFIED 01/16/2017 ERICK RODRIGUEZ LINEN AIDE Ot Z79.82 LONG-TERM (CURRENT) USE OF ASPIRIN 01/18/2017 ERICK RODRIGUEZ LINEN AIDE Ot E78.00 PURE HYPERCHOLESTEROLEMIA, UNSPECIFIED 01/18/2017 ERICK RODRIGUEZ LINEN AIDE Ot H53.8 OTHER VISUAL DISTURBANCES 01/18/2017 ERICK RODRIGUEZ LINEN AIDE Ot I10 ESSENTIAL (PRIMARY) HYPERTENSION 01/18/2017 ERICK RODRIGUEZ LINEN AIDE Ot K59.00 CONSTIPATION, UNSPECIFIED 01/18/2017 ERICK RODRIGUEZ LINEN AIDE Ot Z79.82 LONG-TERM (CURRENT) USE OF ASPIRIN 02/28/2017 LORENA MIKE MD Ot M54.41 LUMBAGO WITH SCIATICA, RIGHT SIDE 02/28/2017 LORENA MIKE MD Ot R53.1 WEAKNESS 03/02/2017 LORENA MIKE MD Ot M54.41 LUMBAGO WITH SCIATICA, RIGHT SIDE 03/02/2017 LORENA MIKE MD Ot R53.1 WEAKNESS 03/06/2017 LORENA MIKE MD Ot M54.41 LUMBAGO WITH SCIATICA, RIGHT SIDE 03/06/2017 LORENA MIKE MD Ot R53.1 WEAKNESS 03/08/2017 LORENA MIKE MD Ot M54.41 LUMBAGO WITH SCIATICA, RIGHT SIDE 03/08/2017 LORENA MIKE MD Ot R53.1 WEAKNESS 03/26/2017 LORENA MIKE MD Ot M54.41 LUMBAGO WITH SCIATICA, RIGHT SIDE 03/26/2017 LORENA MIKE MD Ot R53.1 WEAKNESS 04/10/2017 LORENA MIKE MD, Ot M54.41 LUMBAGO WITH SCIATICA, RIGHT SIDE 04/10/2017 LORENA MIKE MD, Ot R53.1 WEAKNESS 09/09/2017 LORENA MIKE MD, Ot Z12.31 ENCNTR SCREEN MAMMOGRAM FOR MALIGNANT NE 09/12/2017 CHIQUITA MUNIZ DO Ot 722.52 LUMB/LUMBOSAC DISC DEGEN 09/12/2017 CHIQUITA MUNIZ DO Ot 733.00 OSTEOPOROSIS NOS 09/12/2017 CHIQUITA MUNIZ DO Ot V76.12 OTH SCREEN MAMMO-MALIGN NEOPLASM OF LAURE 09/12/2017 CHIQUITA MUNIZ DO Ot 338.29 OTHER CHRONIC PAIN 09/12/2017 CHIQUITA MUNIZ DO Ot 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 09/12/2017 CHIQUITA MUNIZ DO Ot 733.90 BONE CARTILAGE DIS NOS 09/12/2017 CHIQUITA MUNIZ DO, Ot V76.12 OTH SCREEN MAMMO-MALIGN NEOPLASM OF LAURE 09/12/2017 HILLARY LAN MD Ot 433.10 CAROTID ARTERY OCCLUSION W O CEREBRAL IN 09/12/2017 HILLARY LAN MD Ot V72.63 PRE-PROCEDURAL LABORATORY EXAMINATION 09/12/2017 HILLARY LAN MD Ot V72.83 EXAM PRE-OPERATIVE NEC 09/12/2017 Ot 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 09/12/2017 AGUS DASH FACC, TALIB AHMADI CCDS Ot E78.4 OTHER HYPERLIPIDEMIA 09/12/2017 AGUS DASH FACC, TALIB WALDENP CCDS Ot I10 ESSENTIAL (PRIMARY) HYPERTENSION 09/12/2017 TALIB GOLDSMITH MD, FACC, FACP CCDS Ot I25.10 ATHSCL HEART DISEASE OF [place] CORONARY 09/12/2017 AGUS DASH FACC, TALIB AHMADI CCDS Ot 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 09/12/2017 AGUS DASH FACC, TALIB WALDENP CCDS Ot R42 DIZZINESS AND GIDDINESS 09/12/2017 CHIQUITA MUNIZ DO Ot M81.0 AGE-RELATED OSTEOPOROSIS W/O CURRENT PAT 09/12/2017 CHIQUITA MUNIZ DO Ot Z12.31 ENCNTR SCREEN MAMMOGRAM FOR MALIGNANT NE 09/12/2017 LORENA MIKE MD Ot Z12.31 ENCNTR SCREEN MAMMOGRAM FOR MALIGNANT NE 09/13/2017 LORENA MIKE MD Ot Z12.31 ENCNTR SCREEN MAMMOGRAM FOR MALIGNANT NE 09/18/2017 LORENA MIKE MD Ot Z12.31 ENCNTR SCREEN MAMMOGRAM FOR MALIGNANT NE 09/25/2017 ROSA BARRON DO Ot Z01.818 ENCOUNTER FOR OTHER PREPROCEDURAL EXAMIN 09/25/2017 ROSA BARRON DO Ot Z12.11 ENCOUNTER FOR SCREENING FOR MALIGNANT NE 09/25/2017 ROSA BARRON DO Ot Z86.010 PERSONAL HISTORY OF COLONIC POLYPS 09/30/2017 ROSA BARRON DO Ot Z01.818 ENCOUNTER FOR OTHER PREPROCEDURAL EXAMIN 09/30/2017 ROSA BARRON DO Ot Z12.11 ENCOUNTER FOR SCREENING FOR MALIGNANT NE 09/30/2017 ROSA BARRON DO Ot Z86.010 PERSONAL HISTORY OF COLONIC POLYPS 10/02/2017 LORENA MIKE MD Ot Z12.31 ENCNTR SCREEN MAMMOGRAM FOR MALIGNANT NE 10/11/2017 LORENA MIKE MD Ot Z12.31 ENCNTR SCREEN MAMMOGRAM FOR MALIGNANT NE 11/11/2017 ROSA BARRON DO Ot Z01.818 ENCOUNTER FOR OTHER PREPROCEDURAL EXAMIN 11/11/2017 ORSA BARRON DO Ot Z12.11 ENCOUNTER FOR SCREENING FOR MALIGNANT NE 11/11/2017 ROSA BARRON DO Ot Z86.010 PERSONAL HISTORY OF COLONIC POLYPS 11/12/2017 ROSA BARRON DO Ot I10 ESSENTIAL (PRIMARY) HYPERTENSION 11/12/2017 ROSA BARRON DO Ot I25.10 ATHSCL HEART DISEASE OF [place] CORONARY 11/12/2017 ROSA BARRON DO, Ot K57.30 DVRTCLOS OF LG INT W/O PERFORATION OR AB 11/12/2017 ROSA BARRON DO Ot Z12.11 ENCOUNTER FOR SCREENING FOR MALIGNANT NE 11/12/2017 ROSA BARRON DO Ot Z79.82 LONG-TERM (CURRENT) USE OF ASPIRIN 11/12/2017 ROSA BARRON DO, Ot Z79.899 OTHER LONG-TERM (CURRENT) DRUG THERAPY 11/12/2017 ROSA BARRON DO Ot Z86.010 PERSONAL HISTORY OF COLONIC POLYPS 11/12/2017 ROSA BARRON DO Ot Z87.891 PERSONAL HISTORY OF NICOTINE DEPENDENCE 11/12/2017 ROSA BARRON DO Ot Z95.1 PRESENCE OF AORTOCORONARY BYPASS GRAFT 11/13/2017 ROSA BARRON DO Ot I10 ESSENTIAL (PRIMARY) HYPERTENSION 11/13/2017 ROSA BARRON DO Ot I25.10 ATHSCL HEART DISEASE OF [place] CORONARY 11/13/2017 ROSA BARRON DO Ot K57.30 DVRTCLOS OF LG INT W/O PERFORATION OR AB 11/13/2017 ROSA BARRON DO Ot Z12.11 ENCOUNTER FOR SCREENING FOR MALIGNANT NE 11/13/2017 ROSA BARRON DO Ot 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 11/13/2017 ROSA BARRON DO Ot Z79.899 OTHER LONG-TERM (CURRENT) DRUG THERAPY 11/13/2017 ROSA BARRON DO Ot Z86.010 PERSONAL HISTORY OF COLONIC POLYPS 11/13/2017 ROSA BARRON DO Ot Z87.891 PERSONAL HISTORY OF NICOTINE DEPENDENCE 11/13/2017 ROSA BARRON DO Ot Z95.1 PRESENCE OF AORTOCORONARY BYPASS GRAFT Procedures Code Description Performed By Performed On G0008 FLU ADMINISTRATION ( MEDICARE ONLY) 03/09/2013 Results Test Result Range Complete blood count (CBC) with automated white blood cell (WBC) differential - 01/16/17 12:09 Blood leukocytes automated count (number/volume) 7.4 10*3/uL 4.3-11.0 Blood erythrocytes automated count (number/volume) 4.71 10*6/uL 4.35-5.85 Venous blood hemoglobin measurement (mass/volume) 14.5 g/dL 11.5-16.0 Blood hematocrit (volume fraction) 44 % 35-52 Automated erythrocyte mean corpuscular volume 94 [foz_us] 80-99 Automated erythrocyte mean corpuscular hemoglobin (mass per erythrocyte) 31 pg 25-34 Automated erythrocyte mean corpuscular hemoglobin concentration measurement ( mass/volume) 33 g/dL 32-36 Automated erythrocyte distribution width ratio 13.1 % 10.0-14.5 Automated blood platelet count (count/volume) 156 10*3/uL 130-400 Automated blood platelet mean volume measurement 9.5 [foz_us] 7.4-10.4 Automated blood neutrophils/100 leukocytes 51 % 42-75 Automated blood lymphocytes/100 leukocytes 37 % 12-44 Blood monocytes/100 leukocytes 10 % 0-12 Automated blood eosinophils/100 leukocytes 2 % 0-10 Automated blood basophils/100 leukocytes 0 % 0-10 Blood neutrophils automated count (number/volume) 3.8 10*3 1.8-7.8 Blood lymphocytes automated count (number/volume) 2.8 10*3 1.0-4.0 Blood monocytes automated count (number/volume) 0.7 10*3 0.0-1.0 Automated eosinophil count 0.2 10*3/uL 0.0-0.3 Automated blood basophil count (count/volume) 0.0 10*3/uL 0.0-0.1 Comprehensive metabolic panel - 01/16/17 12:09 Serum or plasma sodium measurement (moles/volume) 140 mmol/L 135-145 Serum or plasma potassium measurement (moles/volume) 4.2 mmol/L 3.6-5.0 Serum or plasma chloride measurement (moles/volume) 106 mmol/L 98-107 Carbon dioxide 26 mmol/L 21-32 Serum or plasma anion gap determination (moles/volume) 8 mmol/L 5-14 Serum or plasma urea nitrogen measurement (mass/volume) 14 mg/dL 7-18 Serum or plasma creatinine measurement (mass/volume) 0.61 mg/dL 0.60-1.30 Serum or plasma urea nitrogen/creatinine mass ratio 23 NRG Serum or plasma creatinine measurement with calculation of estimated glomerular filtration rate > NRG Serum or plasma glucose measurement (mass/volume) 93 mg/dL 70-105 Serum or plasma calcium measurement (mass/volume) 9.8 mg/dL 8.5-10.1 Serum or plasma total bilirubin measurement (mass/volume) 0.7 mg/dL 0.1-1.0 Serum or plasma alkaline phosphatase measurement (enzymatic activity/volume) 53 U/L 40-136 Serum or plasma aspartate aminotransferase measurement (enzymatic activity/ volume) 19 U/L 5-34 Serum or plasma alanine aminotransferase measurement (enzymatic activity/volume ) 14 U/L 0-55 Serum or plasma protein measurement (mass/volume) 6.5 g/dL 6.4-8.2 Serum or plasma albumin measurement (mass/volume) 3.8 g/dL 3.2-4.5 Complete urinalysis with reflex to culture - 01/16/17 14:24 Urine color determination YELLOW NRG Urine clarity determination CLEAR NRG Urine pH measurement by test strip 7 5-9 Specific gravity of urine by test strip 1.010 1.016- 1.022 Urine protein assay by test strip, semi-quantitative NEGATIVE NEGATIVE Urine glucose detection by automated test strip NEGATIVE NEGATIVE Erythrocytes detection in urine sediment by light microscopy NEGATIVE NEGATIVE Urine ketones detection by automated test strip NEGATIVE NEGATIVE Urine nitrite detection by test strip NEGATIVE NEGATIVE Urine total bilirubin detection by test strip NEGATIVE NEGATIVE Urine urobilinogen measurement by automated test strip (mass/volume) NORMAL NORMAL Urine leukocyte esterase detection by dipstick 1+ NEGATIVE Automated urine sediment erythrocyte count by microscopy (number/high power field) NONE NRG Automated urine sediment leukocyte count by microscopy (number/high power field ) RARE NRG Bacteria detection in urine sediment by light microscopy NEGATIVE NRG Squamous epithelial cells detection in urine sediment by light microscopy RARE NRG Crystals detection in urine sediment by light microscopy NONE NRG Casts detection in urine sediment by light microscopy NONE NRG Mucus detection in urine sediment by light microscopy NEGATIVE NRG Complete urinalysis with reflex to culture NO NRG Encounters ACCT No. Visit Date/Time Discharge Status Pt. Type Provider Facility Loc./Unit Complaint [id number] 09/07/2013 09:48:00 09/07/2013 23:59:59 CLS Outpatient ARI GUILLORY DDS [id number] 03/09/2013 14:44:00 03/09/2013 23:59:59 CLS Outpatient MONTEMAYOR JAZZMINE MAN [place] [id number] 11/12/2017 08:13:00 11/12/2017 11:20:00 DIS Outpatient ROSA BARRON DO [facility] ENDO SCREENING [id number] 11/08/2017 05:30:00 11/08/2017 13:12:00 DIS Outpatient ROSA BARRON DO [facility] PREOP COLONOSCOPY [id number] 09/24/2017 05:41:00 09/24/2017 14:03:00 DIS Outpatient ROSA BARRON DO [facility] PREOP COLONOSCOPY [id number] 09/12/2017 14:26:00 09/12/2017 23:59:59 CLS Outpatient LORENA MIKE MD [facility] RAD SCREENING [id number] 04/10/2017 13:53:00 04/10/2017 14:33:00 DIS Outpatient LORENA MIKE MD [facility] REHAB LUMBAGO WITH SCIATICA; WEAKNESS [id number] 02/27/2017 14:00:00 03/02/2017 00:01:00 DIS Outpatient LORENA MIKE MD [facility] REHAB LUMBAGO WITH SCIATICA; WEAKNESS [id number] 01/16/2017 12:05:00 01/16/2017 15:20:00 DIS Emergency ERICK RODRIGUEZ APRN [facility] ER BLURRED VISION [id number] 02/23/2016 11:01:00 02/23/2016 23:59:59 CLS Outpatient CHIQUITA MUNIZ DO [facility] RAD ROUTINE,AGE RELATED OSTEOPOROSIS W/O CURRENT PATHO [id number] 11/23/2015 10:41:00 11/23/2015 23:59:59 CLS Outpatient AGUS DASH FACC, TALIB AHMADI CCDS [facility] CARD CAD,HLP,HTN [id number] 12/31/2014 21:26:00 12/31/2014 23:25:00 DIS Emergency MARY TEJEDA [facility] ER R ARM BRUISING/ SWELLING [id number] 12/19/2014 16:41:00 12/19/2014 18:08:00 DIS Emergency SHRUTI HANDY MD [facility] ER LEFT SIDE NECK/POSS BLOOD CLOT [id number] 12/06/2014 09:33:00 12/06/2014 23:59:59 CLS Outpatient HILLARY LAN MD [facility] CARD CAROTID ARTERY STENOSIS [id number] 08/03/2014 08:30:00 08/03/2014 23:59:59 CLS Preadmit AGUS DASH FACC, TALIB AHMADI CCDS [facility] CARD CAD,HTN,HLP [id number] 07/14/2014 11:05:00 07/14/2014 23:59:59 CLS Outpatient CHIQUITA MUNIZ DO [facility] RAD SCREENING [id number] 12/15/2013 14:53:00 12/15/2013 23:59:59 CLS Outpatient CHIQUITA MUNIZ DO [facility] RAD OSTEOARTHRITIS [id number] 04/08/2013 10:05:00 04/08/2013 23:59:59 CLS Outpatient CHQIUITA MUNIZ DO [facility] RAD SCREENING [id number] 10/31/2012 10:43:00 10/31/2012 23:59:59 CLS Outpatient CHIQUITA MUNIZ DO [facility] RAD OSTEOPOROSIS [id number] 10/24/2012 13:27:00 10/24/2012 23:59:59 CLS Outpatient CHIQUITA MUNIZ DO [facility] RAD LUMBAGO [id number] 06/24/2015 13:34:00 Document Registration [id number] 12/31/2014 23:17:00 Document Registration [id number] 11/27/2011 13:50:00 Document Registration [id number] 11/23/2011 09:48:00 Document Registration [id number] 05/14/2011 09:37:00 Document Registration [id number] 03/29/2011 10:26:00 Document Registration [id number] 11/06/2010 15:05:00 Document Registration [id number] 08/23/2010 11:05:00 Document Registration [id number] 07/25/2010 13:18:00 Document Registration [id number] 05/08/2010 10:51:00 Document Registration [id number] 03/03/2010 11:10:00 Document Registration [id number] 09/14/2009 09:37:00 Document Registration [id number] 08/08/2009 10:36:00 Document Registration [id number] 06/28/2009 11:17:00 Document Registration [id number] 01/01/2015 06:51:12 ACT Document Registration
[2018-02-01 16:40] LABS: BASOPHILS % (AUTO) 0 % (0-10); EOSINOPHILS # (AUTO) 0.1 10^3/uL (0.0-0.3); EOSINOPHILS % (AUTO) 1 % (0-10); HEMATOCRIT 43 % (35-52); HEMOGLOBIN 14.7 G/DL (11.5-16.0); LYMPHOCYTES # (AUTO) 2.4 X 10^3 (1.0-4.0); LYMPHOCYTES % (AUTO) 41 % (12-44); MEAN CORPUSCULAR HEMOGLOBIN 32 PG (25-34); MEAN CORPUSCULAR HGB CONC 34 G/DL (32-36); MEAN CORPUSCULAR VOLUME 93 FL (80-99); MEAN PLATELET VOLUME 9.4 FL (7.4-10.4); MONOCYTES # (AUTO) 0.6 X 10^3 (0.0-1.0); MONOCYTES % (AUTO) 10 % (0-12); NEUTROPHILS # (AUTO) 2.8 X 10^3 (1.8-7.8); NEUTROPHILS % (AUTO) 48 % (42-75); PLATELET COUNT 181 10^3/uL (130-400); RED BLOOD COUNT 4.64 10^6/uL (4.35-5.85); RED CELL DISTRIBUTION WIDTH 12.9 % (10.0-14.5); WHITE BLOOD COUNT 5.8 10^3/uL (4.3-11.0)
--- NOTE | 2018-02-01 16:52 | ED General ---
General Chief Complaint: General Problems/Pain Stated Complaint: BRUISING UNDER SKIN ON ARMS/LEGS SWELLING Nursing Triage Note: c/o a 50 cent size hematoma to hand. States she noticed it when she used restroom, no known injury. states she bruises easily. Also states that her ankles are swelling- no pitting edema but fluidity noted to both ankles. also states that she wakes stiff and sore, hard to walk and her back is sore all the time Nursing Sepsis Screen: No Definite Risk Source of Information: Patient Exam Limitations: No Limitations History of Present Illness Date Seen by Provider: Feb 01, 2018 Time Seen by Provider: 16:52 Initial Comments To ER with reports of swelling to both feet every summer. She's had swelling for about 2 weeks this time. No shortness of breath or chest pain. No abdominal pain. Unusually easy bruising to the dorsal aspect of the forearms. Severity: Moderate Associated Systoms: No Chest Pain, No Cough, No Diaphoresis, No Fever/Chills, No Headaches, No Loss of Appetite, No Malaise, No Nausea/Vomiting, No Rash Allergies and Home Medications Allergies Uncoded Allergies: SULFA (Allergy, Unknown, 12/31/14) Home Medications Aspirin 81 Mg Tab.chew, 81 MG PO DAILY, (Reported) Atenolol 50 Mg Tablet, 50 MG PO DAILY, (Reported) Atenolol 50 Mg Tablet, 25 MG PO HS, (Reported) take 1/2 of 50mg tab Cefuroxime Axetil 250 Mg Tablet, 250 MG PO BID Prescribed by: ERICK RODRIGUEZ on 02/01/18 1251 Multivitamin 1 Each Tablet, 1 EACH PO DAILY, (Reported) Simvastatin 20 Mg Tablet, 20 MG PO DAILY, (Reported) Patient Home Medication List Home Medication List Reviewed: Yes Review of Systems Review of Systems Constitutional: see HPI EENTM: see HPI Respiratory: no symptoms reported Cardiovascular: no symptoms reported Genitourinary: no symptoms reported Musculoskeletal: no symptoms reported Skin: no symptoms reported Past Kqkgfqv-Qkozpc-Xdefnx Hx Patient Social History Alcohol Use: Denies Use Recreational Drug Use: No 2nd Hand Smoke Exposure: No Recent Foreign Travel: No Contact w/Someone Who Travel: No Recent Infectious Disease Expo: No Recent Hopitalizations: No Physical Abuse: No Sexual Abuse: No Mistreated: No Fear: No Immunizations Up To Date Tetanus Booster (TDap): Less than 5yrs Date of Pneumonia Vaccine: Apr 26, 2017 Date of Influenza Vaccine: Apr 26, 2017 Seasonal Allergies Seasonal Allergies: No Past Medical History Surgeries: Yes (L SIDED CAROTID, triple bypass, D&C) CABG, Gallbladder, Hysterectomy Respiratory: No Cardiac: Yes (triple bypass, ) Heart Attack, High Cholesterol, Hypertension Neurological: No (left cartoid endartarectomy) Reproductive Disorders: No Sexually Transmitted Disease: No Gastrointestinal: Yes Polyps Musculoskeletal: Yes Osteoporosis, Arthritis, Chronic Back Pain Endocrine: No Cancer: No Psychosocial: No Nursing Suicide Risk Score: 0 Integumentary: No Blood Disorders: No Adverse Reaction/Blood Tranf: No Family Medical History No Pertinent Family Hx Physical Exam Vital Signs Vital Signs - First Documented 02/01/18 16:10 Temp 98.3 Pulse 73 Resp 16 B/P (MAP) 159/96 (117) Pulse Ox 96 Capillary Refill : Less Than 3 Seconds Height, Weight, BMI Height: 5'1.00" Weight: 138lbs. 0.0oz. [id number]; 26.1 BMI Method:Stated General Appearance: No Apparent Distress, WD/WN Eyes: Bilateral Eye Normal Inspection, Bilateral Eye PERRL, Bilateral Eye EOMI HEENT: PERRL/EOMI, TMs Normal Neck: Full Range of Motion, Normal Inspection Respiratory: Normal Breath Sounds, No Accessory Muscle Use, No Respiratory Distress Cardiovascular: Regular Rate, Rhythm, Normal Peripheral Pulses Gastrointestinal: Normal Bowel Sounds, Non Tender, Soft Extremity: Normal Capillary Refill, Normal Inspection, Swelling (2+ pitting edema of the feet, this does not extend proximally beyond the ankle. There is no erythema.), Other (minute time size or smaller bruising to the dorsal aspect of the forearms. About 3 or 4 per forearm. She also has some seborrheic keratoses that she is worried about) Neurologic/Psychiatric: Alert, Oriented x3, No Motor/Sensory Deficits Skin: Normal Color, Warm/Dry Progress/Results/Core Measures Suspected Sepsis Recent Fever Within 48 Hours: No Infection Criteria Present: None New/Unexplained Altered Menta: No Sepsis Screen: No Definite Risk SIRS Temperature:98.3 Pulse: 73 Respiratory Rate: 16 Laboratory Tests 02/01/18 16:25: White Blood Count 5.8 Blood Pressure 159 /96 Mean: 117 Laboratory Tests 02/01/18 16:25: Creatinine 0.71, Platelet Count 181, Total Bilirubin 0.7 Results/Orders Lab Results Laboratory Tests Test 02/01/18 16:25 02/01/18 17:32 Range/Units White Blood Count 5.8 4.3-11.0 10^3/uL Red Blood Count 4.64 4.35-5.85 10^6/uL Hemoglobin 14.7 11.5-16.0 G/DL Hematocrit 43 35-52 % Mean Corpuscular Volume 93 80-99 FL Mean Corpuscular Hemoglobin 32 25-34 PG Mean Corpuscular Hemoglobin Concent 34 32-36 G/DL Red Cell Distribution Width 12.9 10.0-14.5 % Platelet Count 181 130-400 10^3/uL Mean Platelet Volume 9.4 7.4-10.4 FL Neutrophils (%) (Auto) 48 42-75 % Lymphocytes (%) (Auto) 41 12-44 % Monocytes (%) (Auto) 10 0-12 % Eosinophils (%) (Auto) 1 0-10 % Basophils (%) (Auto) 0 0-10 % Neutrophils # (Auto) 2.8 1.8-7.8 X 10^3 Lymphocytes # (Auto) 2.4 1.0-4.0 X 10^3 Monocytes # (Auto) 0.6 0.0-1.0 X 10^3 Eosinophils # (Auto) 0.1 0.0-0.3 10^3/uL Basophils # (Auto) 0.0 0.0-0.1 10^3/uL Sodium Level 140 135-145 MMOL/L Potassium Level 4.4 3.6-5.0 MMOL/L Chloride Level 105 98-107 MMOL/L Carbon Dioxide Level 26 21-32 MMOL/L Anion Gap 9 5-14 MMOL/L Blood Urea Nitrogen 21 H 7-18 MG/DL Creatinine 0.71 0.60-1.30 MG/DL Estimat Glomerular Filtration Rate > 60 BUN/Creatinine Ratio 30 Glucose Level 115 H 70-105 MG/DL Calcium Level 10.1 8.5-10.1 MG/DL Corrected Calcium 9.9 8.5-10.1 MG/DL Total Bilirubin 0.7 0.1-1.0 MG/DL Aspartate Amino Transf (AST/SGOT) 20 5-34 U/L Alanine Aminotransferase (ALT/SGPT) 14 0-55 U/L Alkaline Phosphatase 52 40-136 U/L B-Type Natriuretic Peptide 246.5 H <100.0 PG/ML Total Protein 7.0 6.4-8.2 GM/DL Albumin 4.3 3.2-4.5 GM/DL Thyroid Stimulating Hormone (TSH) 0.82 0.35-4.94 UIU/ML Free Thyroxine 1.06 0.70-1.48 NG/DL Urine Color YELLOW Urine Clarity CLEAR Urine pH 6 5-9 Urine Specific [place] 1.015 L 1.016-1.022 Urine Protein NEGATIVE NEGATIVE Urine Glucose (UA) NEGATIVE NEGATIVE Urine Ketones NEGATIVE NEGATIVE Urine Nitrite NEGATIVE NEGATIVE Urine Bilirubin NEGATIVE NEGATIVE Urine Urobilinogen NORMAL NORMAL MG/DL Urine Leukocyte Esterase 3+ H NEGATIVE Urine RBC (Auto) NEGATIVE NEGATIVE Urine RBC RARE /HPF Urine WBC 10-25 H /HPF Urine Squamous Epithelial Cells 2-5 /HPF Urine Renal Epithelial Cells NONE /HPF Urine Crystals NONE /LPF Urine Bacteria TRACE /HPF Urine Casts NONE /LPF Urine Mucus SMALL H /LPF Urine Culture Indicated YES My Orders Orders - ERICK RODRIGUEZ APRN Ua Culture If Indicated (02/01/18 16:31) Cbc With Automated Diff (02/01/18 16:31) Comprehensive Metabolic Panel (02/01/18 16:31) BNP (02/01/18 16:31) Thyroid Stimulating Hormone (02/01/18 16:31) Free T4 (Free Thyroxine) (02/01/18 16:31) Urine Culture (02/01/18 17:32) Sulfamethoxazole/Trimet Ds Tab (Bactrim (02/01/18 18:00) Cephalexin Capsule (Keflex Capsule) (02/01/18 18:30) Medications Given in ED Current Medications Medications Dose Ordered Sig/Hilda Route Start Time Stop Time Status Last Admin Dose Admin Trimethoprim/ Sulfamethoxazole 1 ea ONCE ONCE PO 02/01/18 18:00 02/01/18 18:01 DC 02/01/18 18:14 1 EA Vital Signs/I&O 02/01/18 16:10 Temp 98.3 Pulse 73 Resp 16 B/P (MAP) 159/96 (117) Pulse Ox 96 Capillary Refill : Less Than 3 Seconds Blood Pressure Mean: 117 Departure Impression Primary Impression: Pedal edema Additional Impressions: Seborrheic keratoses Ecchymosis Urinary tract infection Disposition: HOME, SELF-CARE Condition: Stable Departure-Patient Inst. Decision time for Depature: 18:05 Referrals: LORENA MIKE MD (PCP/Family) Primary Care Physician Patient Instructions: Urinary Tract Infection, Adult (DC) Add. Discharge Instructions: 1. Elevate your legs as much as possible. This will help with the swelling. Wear some compression stockings and this will also help with the swelling. You can buy these at the [employer] medical equipment store at the mall.take antibiotics as directed for the urinate tract infection. Follow-up with Dr. Colin from dermatology for the skin lesions. Address: [address] [place] [address] Opens 8AM Mon . All discharge instructions reviewed with patient and/or family. Voiced understanding. Scripts Cefuroxime Axetil (Cefuroxime) 250 Mg Tablet 250 MG PO BID, #10 TAB Prov: ERICK RODRIGUEZ APRN 02/01/18 Work/School Note: [employer] ERICK RODRIGUEZ APRN Feb 01, 2018 16:52
[2018-02-01 16:59] LABS: ALANINE AMINOTRANSFERASE 14 U/L (0-55); ALBUMIN 4.3 GM/DL (3.2-4.5); ALKALINE PHOSPHATASE 52 U/L (40-136); BILIRUBIN,TOTAL 0.7 MG/DL (0.1-1.0); BUN/CREATININE RATIO 30; CALCIUM 10.1 MG/DL (8.5-10.1); CARBON DIOXIDE 26 MMOL/L (21-32); CHLORIDE 105 MMOL/L (98-107); CREATININE SERUM 0.71 MG/DL (0.60-1.30); GFR ESTIMATED > 60; GLUCOSE 115 MG/DL (70-105); POTASSIUM 4.4 MMOL/L (3.6-5.0); SODIUM 140 MMOL/L (135-145)
[2018-02-01 17:19] LABS: FREE T4 (FREE THYROXINE) 1.06 NG/DL (0.70-1.48)
[2018-02-01 17:35] LABS: BILIRUBIN,URINE NEGATIVE (NEGATIVE); CLARITY,URINE CLEAR; COLOR,URINE YELLOW; GLUCOSE, URINE (UA) NEGATIVE (NEGATIVE); KETONES,URINE NEGATIVE (NEGATIVE); LEUKOCYTE ESTERASE ,URINE 3+ (NEGATIVE); NITRITE,URINE NEGATIVE (NEGATIVE); PH,URINE 6 (5-9); PROTEIN,URINE NEGATIVE (NEGATIVE); UROBILINOGEN,URINE NORMAL (NORMAL)
[2018-02-01 17:47] LABS: RBC,URINE RARE /HPF
[2018-02-01 17:48] LABS: BACTERIA,URINE TRACE /HPF
[2018-02-01] MEDS ORDERED: TRIM/SULFAMETH 160/800 (SEPTRA DS) TAB PO ONE (18:00)
[2018-02-01] MEDS ORDERED: CEFU250T80 PO (18:07)
[2018-02-01] MEDS ORDERED: CEPHALEXIN 250 MG (KEFLEX) CAP PO ONE (18:30)
[2018-02-01 18:32] VITALS: BP 141/60
== END 2018-02-01 18:33 | disposition home or self-care (01) ==
LOC: EDUNIT# 16:02 → ER 16:04
DX: S50.11XA Contusion of right forearm, initial encounter (principal); S50.12XA Contusion of left forearm, initial encounter; R60.0 Localized edema; L82.0 Inflamed seborrheic keratosis; N39.0 Urinary tract infection, site not specified; I25.2 Old myocardial infarction; I10 Essential (primary) hypertension; E78.00 Pure hypercholesterolemia, unspecified; M81.0 Age-related osteoporosis without current pathological fracture; Z86.010 Personal history of colon polyps; Z90.89 Acquired absence of other organs; Z88.2 Allergy status to sulfonamides; Z79.82 Long term (current) use of aspirin; Z95.1 Presence of aortocoronary bypass graft; Z90.710 Acquired absence of both cervix and uterus; X58.XXXA Exposure to other specified factors, initial encounter
CPT/HCPCS: 36415; 80053; 81000; 83880; 84439; 84443; 85025; 87088

== ENCOUNTER 2019-02-15 13:25 | Emergency (ER) | payer MEDICARE ==
[~2019-02-15] VITALS: Ht 154 cm; Wt 61.0 kg
[~2019-02-15 13:25] MED LIST changes: +CEFU250T80 PO; -MULT-324 PO; +MULT-834 PO
[2019-02-15 13:55] LABS: BASOPHILS % (AUTO) 0 % (0-10); EOSINOPHILS # (AUTO) 0.1 10^3/uL (0.0-0.3); EOSINOPHILS % (AUTO) 1 % (0-10); HEMATOCRIT 45 % (35-52); HEMOGLOBIN 15.2 G/DL (11.5-16.0); LYMPHOCYTES # (AUTO) 3.2 X 10^3 (1.0-4.0); LYMPHOCYTES % (AUTO) 38 % (12-44); MEAN CORPUSCULAR HEMOGLOBIN 31 PG (25-34); MEAN CORPUSCULAR HGB CONC 34 G/DL (32-36); MEAN CORPUSCULAR VOLUME 92 FL (80-99); MEAN PLATELET VOLUME 10.1 FL (7.4-10.4); MONOCYTES # (AUTO) 0.9 X 10^3 (0.0-1.0); MONOCYTES % (AUTO) 10 % (0-12); NEUTROPHILS # (AUTO) 4.3 X 10^3 (1.8-7.8); NEUTROPHILS % (AUTO) 51 % (42-75); PLATELET COUNT 164 10^3/uL (130-400); RED CELL DISTRIBUTION WIDTH 12.7 % (10.0-14.5); WHITE BLOOD COUNT 8.3 10^3/uL (4.3-11.0)
[2019-02-15 13:59] LABS: INR 1.1 (0.8-1.4); PROTHROMBIN TIME PATIENT 14.4 SEC (12.2-14.7)
[2019-02-15 14:05] LABS: BILIRUBIN,URINE NEGATIVE (NEGATIVE); CLARITY,URINE SLIGHTLY CLOUDY; COLOR,URINE YELLOW; GLUCOSE, URINE (UA) NEGATIVE (NEGATIVE); KETONES,URINE 3+ (NEGATIVE); LEUKOCYTE ESTERASE ,URINE 2+ (NEGATIVE); NITRITE,URINE POSITIVE (NEGATIVE); PH,URINE 6 (5-9); PROTEIN,URINE 2+ (NEGATIVE); UROBILINOGEN,URINE 1 MG/DL (NORMAL)
[2019-02-15 14:08] LABS: ALANINE AMINOTRANSFERASE 25 U/L (0-55); ALBUMIN 4.3 GM/DL (3.2-4.5); ALKALINE PHOSPHATASE 78 U/L (40-136); AMYLASE 61 U/L (25-125); BILIRUBIN,TOTAL 1.1 MG/DL (0.1-1.0); BUN/CREATININE RATIO 9; CALCIUM 10.3 MG/DL (8.5-10.1); CARBON DIOXIDE 25 MMOL/L (21-32); CHLORIDE 104 MMOL/L (98-107); CREATININE SERUM 0.68 MG/DL (0.60-1.30); GFR ESTIMATED > 60; GLUCOSE 113 MG/DL (70-105); LIPASE 21 U/L (8-78); MAGNESIUM 1.9 MG/DL (1.6-2.4); POTASSIUM 3.6 MMOL/L (3.6-5.0); SODIUM 141 MMOL/L (135-145); TOTAL PROTEIN 7.4 GM/DL (6.4-8.2)
[2019-02-15 14:15] LABS: BACTERIA,URINE MODERATE /HPF
[2019-02-15] MEDS ORDERED: CATHETER FLUSH 10 ML SYR IV PRN (14:45)
[2019-02-15] MEDS ORDERED: NS 100 ML (IVPB) BAG IV ONE (14:45)
[2019-02-15] MEDS ORDERED: HOLD METFORMIN - RECEIVED CONTRAST 20 ML VIAL IV SCH (14:45)
[2019-02-15] MEDS ORDERED: IOHEXOL 350 MG/ML 100 ML (OMNIPAQUE 350) VIAL IV ONE (14:45)
--- NOTE | 2019-02-15 15:17 | Diagnostic Imaging Report ---
PATIENT HISTORY: Left lower abdominal pain for 2-3 weeks.. TECHNIQUE: Frontal view of the chest. Upright and supine frontal views of the abdomen. COMPARISON: CT from 01/16/2017. FINDINGS: Lung volumes are large. No focal consolidation is seen. There is cardiomegaly. Sternotomy wires and post CABG changes are seen. Surgical clips are seen in the left neck. The bowel loops are nondistended without obstruction. There is moderate stool in the colon. No large collection of free air is seen. There are degenerative changes in the spine with mild right convex curvature. There are severe degenerative changes in bilateral hip joints. IMPRESSION: 1. No evidence of small bowel obstruction. 2. Moderate stool in the colon. 3. Advanced degenerative changes in the lumbar spine and bilateral hips. 4. Large lung volumes and mild cardiomegaly with no acute pulmonary abnormality seen. Dictated by: Dictated on workstation # [id number]
--- NOTE | 2019-02-15 15:50 | Diagnostic Imaging Report ---
PROCEDURE: CT abdomen and pelvis with contrast. TECHNIQUE: Multiple contiguous axial images were obtained through the abdomen and pelvis after administration of intravenous contrast. Auto Exposure Controls were utilized during the CT exam to meet ALARA standards for radiation dose reduction. INDICATION: Left lower abdominal pain for two weeks. COMPARISON: 01/16/2017. FINDINGS: There is atelectasis in the lung bases. There is mild cardiomegaly. There is a moderate-sized hiatal hernia. The liver demonstrates no focal lesion. Cholecystectomy clips are noted. The spleen appears normal. The pancreas demonstrates mild atrophy. The adrenal glands appear normal. The kidneys demonstrate multiple hyperdensities may represent excretion of contrast versus calculi. A simple appearing cyst is seen in the right kidney. There is no hydronephrosis, bilaterally. The bowel loops are nondistended without obstruction. The appendix is normal. There is extensive diverticulosis of the sigmoid colon. No diverticulitis is seen. There is extensive calcific atherosclerosis. No dissection or aneurysm is seen. There is end-stage osteoarthritis in the bilateral hips. There are advanced multilevel degenerative changes throughout the spine with grade 1 anterolisthesis at L4-5. There is marked atrophy of the left gluteus minimus. IMPRESSION: 1. Colonic diverticulosis without diverticulitis seen. 2. 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 3. Moderate size hiatal hernia. Mild cardiomegaly. Dictated by: Dictated on workstation # [id number]
[2019-02-15] MEDS ORDERED: KETOROLAC 30 MG/ML VIAL ONE (16:05)
[2019-02-15] MEDS ORDERED: CEFD300C3 PO (16:07)
--- NOTE | 2019-02-15 16:07 | ED Abdominal Pain ---
General Chief Complaint: Abdominal/GI Problems Stated Complaint: KNOT IN L THUMB/L SIDE PAIN Nursing Triage Note: ARRIVED VIA WC WITH COMPLAINTS OF LEFT LOWER ABD PAIN X1 WEEK. SEEN BY URGENT CARE EARLIER IN WEEK AND PUT ON A ABX BUT IS NOT BETTER. Sepsis Screen: No Definite Risk Allergies and Home Medications Allergies Uncoded Allergies: SULFA (Allergy, Unknown, 12/31/14) Home Medications Aspirin 81 Mg Tab.chew, 81 MG PO DAILY, (Reported) Atenolol 50 Mg Tablet, 50 MG PO DAILY, (Reported) Atenolol 50 Mg Tablet, 25 MG PO HS, (Reported) take 1/2 of 50mg tab Cefuroxime Axetil 250 Mg Tablet, 250 MG PO BID Prescribed by: ERICK RODRIGUEZ on 02/01/181806 Multivitamin 1 Each Tablet, 1 EACH PO DAILY, (Reported) Simvastatin 20 Mg Tablet, 20 MG PO DAILY, (Reported) Past Dfbmnit-Jvgegy-Oggiar Hx Patient Social History Alcohol Use: Occasionally Uses Recreational Drug Use: No Smoking Status: Former Smoker 2nd Hand Smoke Exposure: Yes Recent Foreign Travel: No Contact w/Someone Who Travel: No Recent Infectious Disease Expo: No Recent Hopitalizations: No Immunizations Up To Date Tetanus Booster (TDap): Less than 5yrs Date of Pneumonia Vaccine: Apr 26, 2017 Date of Influenza Vaccine: Apr 26, 2017 Seasonal Allergies Seasonal Allergies: No Past Medical History Surgeries: Yes (L SIDED CAROTID, triple bypass, D&C) CABG, Gallbladder, Hysterectomy Respiratory: No Cardiac: Yes (triple bypass, ) Heart Attack, High Cholesterol, Hypertension Neurological: No (left cartoid endartarectomy) Reproductive Disorders: No Sexually Transmitted Disease: No Genitourinary: Yes UTI-Chronic Gastrointestinal: Yes Polyps Musculoskeletal: Yes Osteoporosis, Arthritis, Chronic Back Pain Endocrine: No Cancer: No Psychosocial: No Integumentary: No Blood Disorders: No Adverse Reaction/Blood Tranf: No Family Medical History No Pertinent Family Hx Physical Exam Vital Signs Vital Signs - First Documented 02/15/19 13:31 Temp 37.4 Pulse 81 Resp 16 B/P (MAP) 165/84 (111) Pulse Ox 98 O2 Delivery Room Air Capillary Refill : Less Than 3 Seconds Height/Weight/BMI Height: 5'1.00" Weight: 138lbs. 0.0oz. 62.205164za; 25.00 BMI Method:Stated Progress/Results/Core Measures Results/Orders Lab Results Laboratory Tests Test 02/15/19 13:41 02/15/19 14:01 Range/Units White Blood Count 8.3 4.3-11.0 10^3/uL Red Blood Count 4.87 4.35-5.85 10^6/uL Hemoglobin 15.2 11.5-16.0 G/DL Hematocrit 45 35-52 % Mean Corpuscular Volume 92 80-99 FL Mean Corpuscular Hemoglobin 31 25-34 PG Mean Corpuscular Hemoglobin Concent 34 32-36 G/DL Red Cell Distribution Width 12.7 10.0-14.5 % Platelet Count 164 130-400 10^3/uL Mean Platelet Volume 10.1 7.4-10.4 FL Neutrophils (%) (Auto) 51 42-75 % Lymphocytes (%) (Auto) 38 12-44 % Monocytes (%) (Auto) 10 0-12 % Eosinophils (%) (Auto) 1 0-10 % Basophils (%) (Auto) 0 0-10 % Neutrophils # (Auto) 4.3 1.8-7.8 X 10^3 Lymphocytes # (Auto) 3.2 1.0-4.0 X 10^3 Monocytes # (Auto) 0.9 0.0-1.0 X 10^3 Eosinophils # (Auto) 0.1 0.0-0.3 10^3/uL Basophils # (Auto) 0.0 0.0-0.1 10^3/uL Prothrombin Time 14.4 12.2-14.7 SEC INR Comment 1.1 0.8-1.4 Activated Partial Thromboplast Time 29 24-35 SEC Sodium Level 141 135-145 MMOL/L Potassium Level 3.6 3.6-5.0 MMOL/L Chloride Level 104 98-107 MMOL/L Carbon Dioxide Level 25 21-32 MMOL/L Anion Gap 12 5-14 MMOL/L Blood Urea Nitrogen 6 L 7-18 MG/DL Creatinine 0.68 0.60-1.30 MG/DL Estimat Glomerular Filtration Rate > 60 BUN/Creatinine Ratio 9 Glucose Level 113 H 70-105 MG/DL Calcium Level 10.3 H 8.5-10.1 MG/DL Corrected Calcium 10.1 8.5-10.1 MG/DL Magnesium Level 1.9 1.6-2.4 MG/DL Total Bilirubin 1.1 H 0.1-1.0 MG/DL Aspartate Amino Transf (AST/SGOT) 34 5-34 U/L Alanine Aminotransferase (ALT/SGPT) 25 0-55 U/L Alkaline Phosphatase 78 40-136 U/L Total Protein 7.4 6.4-8.2 GM/DL Albumin 4.3 3.2-4.5 GM/DL Amylase Level 61 25-125 U/L Lipase 21 8-78 U/L Urine Color YELLOW Urine Clarity SLIGHTLY CLOUDY Urine pH 6 5-9 Urine Specific [place] 1.020 1.016-1.022 Urine Protein 2+ H NEGATIVE Urine Glucose (UA) NEGATIVE NEGATIVE Urine Ketones 3+ H NEGATIVE Urine Nitrite POSITIVE H NEGATIVE Urine Bilirubin NEGATIVE NEGATIVE Urine Urobilinogen 1 NORMAL MG/DL Urine Leukocyte Esterase 2+ H NEGATIVE Urine RBC (Auto) 1+ H NEGATIVE Urine RBC NONE /HPF Urine WBC 5-10 H /HPF Urine Squamous Epithelial Cells 10-25 H /HPF Urine Renal Epithelial Cells NONE /HPF Urine Crystals NONE /LPF Urine Bacteria MODERATE H /HPF Urine Casts NONE /LPF Urine Mucus NEGATIVE /LPF Urine Culture Indicated YES My Orders Orders - PABLITO GODOY DO Ed Iv/Invasive Line Start (02/15/19 13:47) Amylase (02/15/19 13:47) Cbc With Automated Diff (02/15/19 13:47) Comprehensive Metabolic Panel (02/15/19 13:47) Lipase (02/15/19 13:47) Magnesium (02/15/19 13:47) Protime With Inr (02/15/19 13:47) Partial Thromboplastin Time (02/15/19 13:47) Ua Culture If Indicated (02/15/19 13:47) Ct Abdomen/Pelvis W (02/15/19 14:11) Acute Abd Series (02/15/19 14:11) Urine Culture (02/15/19 14:01) Iohexol Injection (Omnipaque 350 Mg/Ml 1 (02/15/19 14:45) Received Contrast (Hold Metformin- Contr (02/15/19 14:45) Sodium Chloride Flush (Catheter Flush Sy (02/15/19 14:45) Ns (Ivpb) (Sodium Chloride 0.9% Ivpb Bag (02/15/19 14:45) Rocephin 1 Gm Iv (1x Dose) (02/15/19 16:15) Ketorolac Injection (Toradol Injection) (02/15/19 16:15) Medications Given in ED Current Medications Medications Dose Ordered Sig/Hilda Route Start Time Stop Time Status Last Admin Dose Admin Iohexol 100 ml ONCE ONCE IV 02/15/19 14:45 02/15/19 14:46 DC 02/15/19 15:10 77 ML Sodium Chloride 10 ml NEEDED PRN IV 02/15/19 14:45 02/15/19 15:10 10 ML Sodium Chloride 100 ml ONCE ONCE IV 02/15/19 14:45 02/15/19 14:46 DC 02/15/19 15:10 80 ML Vital Signs/I&O 02/15/19 13:31 Temp 37.4 Pulse 81 Resp 16 B/P (MAP) 165/84 (111) Pulse Ox 98 O2 Delivery Room Air Blood Pressure Mean: 111 Departure Impression Primary Impression: Urinary tract infection Disposition: HOME, SELF-CARE Condition: Stable Departure-Patient Inst. Referrals: LORENA MIKE MD (PCP/Family) Primary Care Physician Patient Instructions: Urinary Tract Infection, Adult (DC) Add. Discharge Instructions: CLEAR LIQUIDS--WATER, BROTH, JELLO, GATORADE TYLENOL AND MOTRIN NEEDED FOR PAIN STOP MACROBID FOLLOW UP WITH DR. MIKE IN 2-3 DAYS FOR FURTHER CARE All discharge instructions reviewed with patient and/or family. Voiced understanding. Scripts Cefdinir (Cefdinir) 300 Mg Capsule 300 MG PO BID, #20 CAP FOR INFECTION Prov: PABLITO GODOY DO 02/15/19 PABLITO GODOY DO Feb 15, 2019 16:07
[2019-02-15] MEDS ORDERED: KETOROLAC 15 MG/ML VIAL IVP ONE (16:15)
[2019-02-15] MEDS ORDERED: cefTRIAXone FOR IV USE 1,000 MG in WATER (STERILE) FOR INJECTION 10 ML IV ONE (16:15)
[2019-02-15 16:27] VITALS: BP 161/77
== END 2019-02-15 16:31 | disposition home or self-care (01) ==
LOC: EDUNIT# 13:25 → ER 13:26
DX: N39.0 Urinary tract infection, site not specified (principal); I10 Essential (primary) hypertension; E78.00 Pure hypercholesterolemia, unspecified; I25.2 Old myocardial infarction; M81.0 Age-related osteoporosis without current pathological fracture; Z86.010 Personal history of colon polyps; Z88.2 Allergy status to sulfonamides; Z79.82 Long term (current) use of aspirin; Z87.891 Personal history of nicotine dependence; Z95.1 Presence of aortocoronary bypass graft; Z90.710 Acquired absence of both cervix and uterus
CPT/HCPCS: 36415; 74022; 74177; 80053; 81000; 82150; 83690; 83735; 85025; 85610; 85730; 87088

== ENCOUNTER → 2019-02-23 | Outpatient (CLI) | payer MEDICARE ==
[~2019-02-23] MED LIST changes: +CEFD300C3 PO
== END ==
LOC: LAB 12:44
PROVIDERS: ATTEND Family Medicine
DX: Z01.89 Encounter for other specified special examinations (principal)
CPT/HCPCS: 87040